=== PATIENT | female | born 1980 | race Two or more races ===

== ENCOUNTER 2022-04-17 18:39 | Emergency (ER) | payer OTHER ==
[~2022-04-17] VITALS: Ht 165.1 cm; Wt 79.0 kg
[2022-04-17] MEDS ORDERED: LAMO100 PO (18:47)
[2022-04-17] MEDS ORDERED: ONDANSETRON HCL 4 MG TABLET PO ONE (19:30)
[2022-04-17] MEDS ORDERED: LamoTRIgine 100 MG TABLET PO ONE (19:45)
[2022-04-17 20:39] VITALS: BP 126/58
== END 2022-04-17 20:45 | disposition home or self-care (01) ==
LOC: EMS 18:41
DX: G40.909 Epilepsy, unspecified, not intractable, without status epilepticus (principal); Z90.710 Acquired absence of both cervix and uterus
CPT/HCPCS: 99283; 82962; Q0162